=== PATIENT | male | born 1950 | race Caucasian/White ===

== ENCOUNTER → 2023-03-22 10:37 | Outpatient (CLI) | payer MEDICARE, SELFPAY ==
--- NOTE | ~2023-03-22 | US_ITS ---
EXAMINATION: US soft tissue lower back DATE: 03/22/2023 10:55 INDICATION: Localized swelling, mass and lump, trunk. TECHNIQUE: Multiple grayscale and Doppler ultrasound images of the lower back were obtained. COMPARISON: None FINDINGS: In the left lower back to the left of midline, there is a 9.1 x 9.3 x 3.9 cm subcutaneous c yst. IMPRESSION: 1. 9.3 cm subcutaneous cyst in left lower back. The patient reports previously having a bruise in thi s area. This finding may be a chronic hematoma. Infection is not excluded. Reviewed, dictated and finalized at location E. IMPRESSION: 1. 9.3 cm subcutaneous cyst in left lower back. The patient reports previously having a bruise in this area. This finding may be a chronic hematoma. Infection is not excluded.
== END ==
PROVIDERS: PCP Family Medicine; Visit Provider Surgery
DX: R22.2 Localized swelling, mass and lump, trunk (principal)
CPT/HCPCS: 76705

== ENCOUNTER 2023-03-26 08:59 | Outpatient (CLI) | payer MEDICARE, SELFPAY ==
--- NOTE | ~2023-03-26 | CT_ITS ---
CT Scan of the Chest without Contrast: Clinical Indication: Abnormal findings in lung field Technique: Contiguous sections were acquired throughout the chest without intravenous contrast. Dose reduction technique was used on this scan by utilizing automated exposure control and iterative recon struction technique. The dose-length product (DLP) was 769.89 mGy-cm. COMPARISON: 09/08/2013 Findings: There is no evidence of any significant mediastinal, hilar or axillary lymphadenopathy. Coronary yon ry calcifications are present. Aortic stent graft present in the descending thoracic aorta. There is no evidence of pleural or pericardial effusion. The lungs are clear. No pulmonary nodules or infiltrates are noted. Images through the upper abdomen reveal no abnormalities. T12 compression deformity noted. Impression: Clear lungs. Descending thoracic aortic stent graft. T12 compression fracture, new from prior exam. Reviewed, dictated and finalized at location . Impression: Clear lungs. Descending thoracic aortic stent graft. T12 compression fracture, new from prior exam.
== END 2023-03-26 09:00 | disposition home or self-care (01) ==
PROVIDERS: PCP Family Medicine; Visit Provider Family Medicine
DX: R09.89 Other specified symptoms and signs involving the circulatory and respiratory systems (principal); R91.8 Other nonspecific abnormal finding of lung field; M48.54XA Collapsed vertebra, not elsewhere classified, thoracic region, initial encounter for fracture; Z95.818 Presence of other cardiac implants and grafts
CPT/HCPCS: 71250